=== PATIENT | female | born 1990 | race Hispanic/Latino ===

== ENCOUNTER 2025-01-05 01:15 | Day surgery (SDC) | payer OTHER, SELFPAY ==
[2025-01-05 01:44] VITALS: BMI 33.0
[2025-01-05] MEDS ORDERED: hydrALAZINE 20 MG/ML VIAL SLOW IVP PRN ×2 (01:57→01:58)
[2025-01-05 02:13] LABS: #Basophils Less than 0.03 10x3/uL (0.0-0.2); #Eosinophils 0.13 10x3/uL (0.0-0.5); #Monocytes 0.53 10x3/uL (0.0-1.1); #Neutrophils 4.97 10x3/uL (1.5-8.4); %Basophils 0.3 % (0.0-2.0); %Eosinophils 1.7 % (0.0-6.0); %Lymphocytes 24.6 % (18.0-47.0); %Monocytes 7.0 % (0.0-10.0); %Neutrophils 65.6 % (40.0-75.0); Hematocrit 34.2 % (34.9-44.5); Hemoglobin 11.9 g/dL (12.0-15.5); Mean Corpuscular Hemoglobin 28.3 pg (27.0-33.0); Mean Corpuscular Volume 81.2 fL (81.6-98.3); Platelet Count 214 10x3/uL (150-450); Red Blood Cell (RBC) Count 4.21 10x6/uL (3.90-5.03); White Blood Cell (WBC) Count 7.57 10x3/uL (3.5-10.5)
[2025-01-05 02:14] LABS: Protein, Urine Random Quant Less than 10 mg/dL (1-14)
[2025-01-05 02:28] LABS: ALT (SGPT) 11 U/L (Less than 34); AST (SGOT) 20 U/L (11-34); Albumin 3.0 g/dL (3.1-4.5); Alkaline Phosphatase 107 U/L (40-110); Anion Gap 12 mmol/L (10-20); BUN (Urea Nitrogen) 4 mg/dL (7.0-18.7); Bilirubin, Total 0.2 mg/dL (0.3-1.2); Calc. Creatinine Clearance 207 mL/min (70-130); Calcium 8.9 mg/dL (7.8-10.44); Carbon Dioxide 20 mmol/L (22-29); Chloride 108 mmol/L (98-107); Globulin 3.4 g/dL (2.4-3.5); Glucose 98 mg/dL (70-105); Potassium 3.7 mmol/L (3.5-5.1); Sodium 136 mmol/L (136-145)
== END 2025-01-05 03:45 | disposition home or self-care (01) ==
LOC: CSHLD/OP 01:15
PROVIDERS: ATTEND Family Medicine
DX: O16.3 Unspecified maternal hypertension, third trimester (principal); O47.03 False labor before 37 completed weeks of gestation, third trimester; O34.219 Maternal care for unspecified type scar from previous cesarean delivery; Z67.41 Type O blood, Rh negative; Z3A.35 35 weeks gestation of pregnancy; Z79.899 Other long term (current) drug therapy
CPT/HCPCS: 36415; 80053; 82570; 84156; 85025; 87480; 87510; 87660; 99285

== ENCOUNTER 2025-01-21 10:42 | Inpatient (IN) | payer MEDICAID, OTHER, SELFPAY ==
[2025-01-21 12:35] VITALS: BMI 33.6
[2025-01-21] MEDS ORDERED: Tranexamic Acid 1,000 MG/10 ML VIAL IVP PRN (12:43)
[2025-01-21] MEDS ORDERED: hydrALAZINE 20 MG/ML VIAL SLOW IVP PRN ×4 (12:43→21:26)
[2025-01-21] MEDS ORDERED: Ondansetron PF 4 MG/2 ML Vial IVP PRN ×4 (12:43→21:26)
[2025-01-21] MEDS ORDERED: Bicitra 30 ML UDCUP PO PRN (12:43)
[2025-01-21] MEDS ORDERED: Carboprost 250 MCG/ML AMP IM PRN (12:43)
[2025-01-21] MEDS ORDERED: Diphenoxylate HCl/Atropine Tablet PO PRN (12:43)
[2025-01-21] MEDS ORDERED: Calcium Gluc 4.6 MEQ/10 ML (100 MG/ML) SLOW IVP PRN (12:43)
[2025-01-21] MEDS ORDERED: Famotidine/PF 20 mg/2ml Vial SLOW IVP PRN (12:43)
[2025-01-21] MEDS ORDERED: Oxytocin 30 units/NS 500 ML 500 ML IV SCH (12:45)
[2025-01-21 13:28] LABS: Hematocrit 35.6 % (34.9-44.5); Hemoglobin 12.3 g/dL (12.0-15.5); Mean Corpuscular Hemoglobin 27.8 pg (27.0-33.0); Mean Corpuscular Volume 80.5 fL (81.6-98.3); Platelet Count 198 10x3/uL (150-450); Red Blood Cell (RBC) Count 4.42 10x6/uL (3.90-5.03); White Blood Cell (WBC) Count 7.12 10x3/uL (3.5-10.5)
[2025-01-21 13:45] LABS: ALT (SGPT) 12 U/L (Less than 34); AST (SGOT) 22 U/L (11-34); Albumin 3.1 g/dL (3.1-4.5); Alkaline Phosphatase 121 U/L (40-110); Anion Gap 15 mmol/L (10-20); BUN (Urea Nitrogen) 10 mg/dL (7.0-18.7); Bilirubin, Total 0.2 mg/dL (0.3-1.2); Calc. Creatinine Clearance 198 mL/min (70-130); Calcium 9.1 mg/dL (7.8-10.44); Carbon Dioxide 19 mmol/L (22-29); Chloride 106 mmol/L (98-107); Globulin 3.1 g/dL (2.4-3.5); Glucose 78 mg/dL (70-105); Potassium 4.1 mmol/L (3.5-5.1); Sodium 136 mmol/L (136-145)
[2025-01-21 14:05] LABS: Hep B Surf Ag - L&D Non-Reactive S/CO (NonReactive); Syphilis Antibody Index 0.07 S/CO (<1.00 Non-Reactive)
[2025-01-21] MEDS ORDERED: HYDROmorphone 0.5 MG/0.5 ML SYRINGE SLOW IVP PRN (16:09)
[2025-01-21] MEDS ORDERED: Meperidine HCl/PF 25 MG (1 mL) VIAL SLOW IVP PRN (16:09)
[2025-01-21] MEDS ORDERED: diphenhydrAMINE 50 MG/ML VIAL IVP PRN (16:09)
[2025-01-21] MEDS ORDERED: Communication Order-Pharmacy FS SCH (16:15)
[2025-01-21] MEDS ORDERED: Ketorolac Tromethamine 30 MG (1 mL) VIAL IVP SCH (16:15)
[2025-01-21] MEDS: Ketorolac Tromethamine 30 MG (1 mL) VIAL IVP PRN (19:51)
[2025-01-21] MEDS ORDERED: Lanolin Ointment 7 GM TUBE TOP PRN (21:26)
[2025-01-21] MEDS ORDERED: Bisacodyl 10 MG SUPP PR PRN (21:26)
[2025-01-21] MEDS ORDERED: HYDROcodone/Acetaminophen 5/325 mg Tablet PO PRN (21:26)
[2025-01-21] MEDS ORDERED: diphenhydrAMINE 25 MG CAP PO PRN (21:26)
[2025-01-21] MEDS ORDERED: Simethicone Chewable 80 MG TAB PO PRN (21:26)
[2025-01-21] MEDS: Oxytocin 10 UNITS/ML VIAL ONE (22:24)
[2025-01-21] MEDS: CEFAZOLIN 2 GM VIAL ONE (22:25)
[2025-01-21] MEDS: PHENYLEPHRINE-NS 100 MCG/ML 10 ML SYRINGE ONE (22:25)
[2025-01-21] MEDS: Erythromycin Base 0.5% Oint 1 GM TUBE ONE (22:25)
[2025-01-21] MEDS: Ferrous Sulfate 325 MG TAB PO SCH (22:26)
[2025-01-22] MEDS: Ketorolac Tromethamine 30 MG (1 mL) VIAL IVP SCH (02:32)
[2025-01-22 03:26] LABS: Hematocrit 32.3 % (34.9-44.5); Hemoglobin 11.1 g/dL (12.0-15.5); Mean Corpuscular Hemoglobin 28.0 pg (27.0-33.0); Mean Corpuscular Volume 81.6 fL (81.6-98.3); Platelet Count 147 10x3/uL (150-450); Red Blood Cell (RBC) Count 3.96 10x6/uL (3.90-5.03); White Blood Cell (WBC) Count 8.71 10x3/uL (3.5-10.5)
[2025-01-22] MEDS: NIFEdipine XL 30 MG ER.TAB PO SCH (08:12)
[2025-01-22] MEDS: Ferrous Sulfate 325 MG TAB PO SCH (08:12)
[2025-01-22] MEDS: HYDROcodone/Acetaminophen 5/325 mg Tablet PO PRN (10:35)
[2025-01-23] MEDS: Ibuprofen 800 MG TAB PO SCH (02:30)
[2025-01-23 07:43] VITALS: BP 140/85; TEMP 98.1
== END 2025-01-23 12:25 | disposition home or self-care (01) | DRG 788 ==
LOC: CSHLD 10:42 → CSHPP 21:35
PROVIDERS: ADMIT Family Medicine; ATTEND Family Medicine
PROC: 10D00Z1 Extraction of Products of Conception, Low, Open Approach (ICD-10-PCS; principal; 2025-01-21)
PROC: 4A1HXCZ Monitoring of Products of Conception, Cardiac Rate, External Approach (ICD-10-PCS; 2025-01-21)
PROC: 3E03329 Introduction of Other Anti-infective into Peripheral Vein, Percutaneous Approach (ICD-10-PCS; 2025-01-21)
DX: O13.4 Gestational [pregnancy-induced] hypertension without significant proteinuria, complicating childbirth (principal); Z37.0 Single live birth; O34.211 Maternal care for low transverse scar from previous cesarean delivery; Z3A.38 38 weeks gestation of pregnancy
CPT/HCPCS: 36415; 51702; 80053; 85027; 86780; 86850; 86900; 86901; 87340; J1885; J2274; J2590; J3010